=== PATIENT | female | born 1995 | race African-American/Black ===

== ENCOUNTER 2019-09-14 18:48 | Emergency (ER) | payer MEDICARE ==
[~2019-09-14] VITALS: Ht 157.5 cm; Wt 81.6 kg
--- OUTSIDE RECORDS SUMMARY | 2019-09-14 18:51 | XMS REPORT ---
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 Allergies, Adverse Reactions, Alerts Allergy Name Allergy Type Status Severity Reaction(s) Onset Date Inacti ve Date Treating Clinician Comments No Known Allergies DA Active U 2018-05-07 00:00:00 Medications This patient has no known medications. Results Test Description Test Time Test Comments Text Results Atomic Results Result Comments 2018-05-12 14:40:00 RUN DATE: 05/12/18 [facility] 1 RUN TIME: 1440 Specimen Inquiry RUN USER: INTERFACE PATIENT: SANTI DUNN LOC: [place] U #: [id number] AGE/SX: 22/F RO[facility]: Lucio Luis MD : 97 BED: DIS: STATUS: [facility] TLOC: SPEC #: [id number] RECD: 05/08/18 [facility] #: [id number] CHAKA: 05/08/18 [facility]: Lucio Luis MD ENTERED: 05/08/18 SP TYPE: OT DR: ORDERED: GROSS PROCEDURES: GROSS (05/12/181331) TISSUES: PRODUCTS OF CONCEPTION, NOS CLINICAL HISTORY COLLECTION DATE: 05/08/18 MISSED FINAL DIAGNOSIS Endometrial curetting, D C: CHORIONIC VILLI AND ENDOMETRIUM CONSISTENT WITH PRODUCTS OF CONCEPTION FA/herminio D [id number] MACROSCOPIC The specimen is received in two separate containers both labeled with the patient's name and both identified as "products of conception". The larger container is designated as #1. Within the larger container there is a clear plastic curettage device within the curettage device there are multiple pink and de leon spongy fragment of tissue and clot material measuring 8.0 X 7.0 X 1.8 cm. Samples of the specimen are submitted for microscopic evaluation in cassette (1). The second specimen contains maxwell spongy material measuring 2.5 X 2.3 X 0.6 cm in aggregate. Samples of the specimen is submitted in cassette (2). GROSS PERFORMED AT [facility] [address] [place] [id number] [phone])[phone] CONTINUED ON NEXT PAGE --RUN DATE: 05/12/18 [place] - Lab PAGE 2 RUN TIME: 1440 Specimen Inquiry RUN USER: INTERFACE SPEC #: [id number] PATIENT: SANTI DUNN REINA #[id number] ([facility]) MICROSCOPIC MICROSCOPIC PERFORMED AT [facility] All of the stains, including any controls performed, stain appropriately. [facility] [address] [facility], [place] [id number] [phone])[phone] PERFORMING SITE Diagnosis performed at: [facility], [place] [address] [place] [address] Signed SIGNATURE ON FILE Ladarius Delvalle MD 05/12/18 1440 END OF REPORT WET PREP 2017-12-04 11:51:00 WBC WET PREP (BEAKER) (test code = 528) Few white blood cells se en CLUE CELLS (BEAKER) (test code = 526) Few clue cells seen YEAST WET PREP (BEAKER) (test code = 530) No budding yeast seen TRICH WET PREP (BEAKER) (test code = 531) No Trichomonas seen BACT WET PREP (BEAKER) (test code = 532) Many bacteria seen URINALYSIS W/ [id number] 11:42:00* Test Item Value Reference Range Comments COLOR (BEAKER) (test code = 470) Yellow CLARITY (BEAKER) (test code = 469) Clear SPECIFIC GRAVITY UA (BEAKER) (test code = 468) 1.025 1 .001-1.035 PH UA (BEAKER) (test code = 467) 7.5 5.0-8.0 PROTEIN UA (BEAKER) (test code = 464) Trace Negative GLUCOSE UA (BEAKER) (test code = 365) Negative Negative KETONES UA (BEAKER) (test code = 371) Trace Negative BILIRUBIN UA (BEAKER) (test code = 462) Negative Negative BLOOD UA (BEAKER) (test code = 461) Negative Negative NITRITE UA (BEAKER) (test code = 465) Negative Negative LEUKOCYTE ESTERASE UA (BEAKER) (test code = 466) Negative Negative UROBILINOGEN UA (BEAKER) (test code = 463) 1.0 mg/dL 0.2-1 .0 BACTERIA (BEAKER) (test code = 517) Few MUCUS (BEAKER) (test code = 1574) Moderate RBC UA-MANUAL (BEAKER) (test code = 6309) None Seen /HPF WBC UA-MANUAL (BEAKER) (test code = 1661) <5 /HPF SQUAMOUS EPITHELIAL MANUAL (BEAKER) (test code = 1663) 5-10 /HPF SOURCE(BEAKER) (test code = 2795) SCREEN, [id number] 11:38:00* Test Item Value Reference Range Comments TEST URINE (BEAKER) (test code = 583) Negative
--- OUTSIDE RECORDS SUMMARY | 2019-09-14 18:51 | XMS REPORT | Clinical Summary ---
Author Author [facility] Address Unknown Phone Unavailable Care Team Providers Care Private Advisor Name Role Phone Pcp, No PCP Unavailable Allergies No Known Allergies Medications No known medications Active Problems Not on file Social History Date Tobacco Use Types Packs/Day Years Used Current Every Day Smoker Cigarettes Smokeless Tobacco: Never Used Alcohol Use Drinks/Week oz/Week Comments Yes Sex Assigned at Date Recorded Not on file Industry Job Start Date Occupation Not on file Not on file Not on file Travel End Travel History Travel Start No recent travel history available. Last Filed Vital Signs Not on file Plan of Treatment Not on file Results Not on fileafter 09/13/2018
[2019-09-14] MEDS ORDERED: SODIUM CHLORIDE 0.9% 1000ML 1,000 ML IV STA (19:21)
[2019-09-14] MEDS ORDERED: ONDANSETRON HCL INJ 2MG/ML 2ML 2 MG/ML VIAL IV STA (19:21)
[2019-09-14] MEDS ORDERED: SODIUM CHLORIDE FLUSH 10 ML SYR INJ PRN (19:30)
--- NOTE | 2019-09-14 19:38 | Emergency Department Note ---
History of Present Illnes History of Present Illness Chief Complaint: n/v Stated Complaint: 2 MONTHS , CANT KEEP MY FOOD DOWN History of Present Illness This is a 23 year old female. 8 weeks preg. + n/v= the same morning sickness like the first . no pain nor other complaints Historian: Patient Clinical Documentation Nurse Required: No Onset (how long ago): day(s) (2) Location: n/v Quality: moderate Radiation: non-radiation Severity: moderate Onset quality: gradual Duration (how long): day(s) (2 ) Timing of current episode: intermittent Progression: unchanged Chronicity: new Context: other (during ) Relieving factors: none Exacerbating factors: none Associated symptoms: denies other symptoms Treatments prior to arrival: none Risk factors: Past Medical/Family History Physician Review I have reviewed the patient's past medical and family history. Any updates have been documented here. Past Medical History Recent Fever: No Clinical Suspicion of Infectio: No New/Unexplained Change in Ment: No Past Medical History: None Past Surgical History: None Social History Smoking Cessation: Never Smoker Alcohol Use: None Any Illegal Drug Use: No TB Exposure/Symptoms: No Physically hurt or threatened: No Family History Family history of heart diseas: No Other Any Pre-Existing Lines (PICC,: No Is patient up to date on immun: No Review of Systems Review of Systems Constitutional: no symptoms EENTM: no symptoms Cardiovascular: no symptoms Gastointestinal/Abdominal: as per HPI, nausea, vomiting Genitourinary: no symptoms Musculoskeletal: no symptoms Integumentary: no symptoms Neurological: no symptoms Psychological: no symptoms Endocrine: no symptoms Hematological/Lymphatic: no symptoms Review of other systems All other systems reviewed and negative. Physical Exam Related Data Allergies: Coded Allergies: No Known Drug Allergies (Verified Allergy, Unknown, 09/14/19) Physical Exam CONSTITUTIONAL Constitutional: well-developed, well-nourished HENT HENT: normocephalic, atraumatic, mucosae dry EYES Eyes: PERRL, conjunctivae normal, EOM normal NECK Neck: ROM normal, supple PULMONARY Pulmonary: effort normal, breath sounds normal CARDIOVASCULAR Cardiovascular: regular rhythm, heart sounds normal GASTROINTESTINAL Abdominal: soft, nontender, bowel sounds normal GENITOURINARY SKIN Skin: warm, dry MUSCULOSKELETAL Musculoskeletal: ROM normal NEUROLOGICAL Neurological: alert, oriented x 3 PSYCHOLOGICAL Psychiatric/behavioral: mood/affect normal Critical Care Time Subsequent provider I assumed direction of critical care for this patient from another provider of my specialty. Comments symptoms resolved Assessment & Plan Assessment & Plan Problems: (1) Hyperemesis gravidarum (2) Dehydration Reassessment Reassessment symptoms resolved s/p meds Depart Disposition: HOME, SELF-CARE FINESSE AMATO September 14, 2019 19:38
[2019-09-14] MEDS ORDERED: SODIUM CHLORIDE 0.9% 1000ML 1,000 ML ONE (19:47)
[2019-09-14] MEDS ORDERED: ONDANSETRON HCL INJ 2MG/ML 2ML 2 MG/ML VIAL ONE (19:57)
[2019-09-14] MEDS ORDERED: PHENERGAN SUPP25 MG PR (20:44)
[2019-09-14] MEDS ORDERED: ONDANSETRON ODT8 MG SL (20:44)
[2019-09-14 21:03] VITALS: BP 127/72
== END 2019-09-14 21:05 | disposition home or self-care (01) ==
LOC: FSED 18:48
DX: O26.891 Other specified pregnancy related conditions, first trimester (principal); O21.1 Hyperemesis gravidarum with metabolic disturbance
CPT/HCPCS: 80048; 80053; 81003; 81025; 99283; J2405; J7030